=== PATIENT | male | born 1970 | race Caucasian/White ===

== ENCOUNTER 2017-02-25 11:36 | Day surgery (SDC) | payer OTHER ==
[2017-02-21 16:08] VITALS: BMI 40.8
[~2017-02-25 11:36] MED LIST: LACTATED RINGERS 1,000 ML IV SCH; LIDOCAINE 1% 20 ML VIAL (10MG/ML) FOR IV START INTRADERMA PRN
[2017-02-25 12:10] VITALS: RESP 16; TEMP 97.2
[2017-02-25] MEDS ORDERED: KETAMINE 10 MG/ML 20 ML VIAL ONE (12:43)
[2017-02-25] MEDS ORDERED: LIDOCAINE 1% INJ 10MG/ML (20 ML MDV) ONE (12:43)
[2017-02-25] MEDS ORDERED: PROPOFOL 10 MG/ML 20 ML VIAL IV ONE (12:43)
[2017-02-25] MEDS ORDERED: MIDAZOLAM 2 MG/2 ML VIAL ONE (12:43)
[2017-02-25] MEDS ORDERED: GLYCOPYRROLATE 0.2 MG/ML 2 ML VIAL ONE (12:43)
--- NOTE | 2017-02-25 13:22 | P.PCN ---
Date of Procedure: 02/25/17 Procedure(s) Performed: Procedures: 1. Esophagogastroduodenoscopy and biopsy. 2. Total colonoscopy. Preoperative diagnosis: Chronic reflux symptoms and family history of colon cancer. Postoperative diagnosis: 1. Small sliding hiatal hernia with no obvious esophagitis or complicated reflux disease. 2. Mild gastritis. 3. Sigmoid diverticulosis with no evidence of acute diverticulitis, strictures, polyps or cancer. Preparation: HalfLytely prep. Sedation: Was provided by anesthesia. Brief clinical history: The patient is a 46-year-old male who is referred for this evaluation because of chronic reflux symptoms and retrosternal burning has family history of colon cancer in his dad. He denies dysphagia or other alarm symptoms. At this time, he has no abdominal pains, bleeding or anemia. This evaluation is requested to evaluate for neoplasia or complicated reflux disease or other pathology. Procedure: With the patient on his left lateral decubitus position and after informed consent and adequate sedation, I passed the Olympus-GIF 160 video upper endoscope through the cricopharyngeus down the esophagus. GE junction was around 40 cm from the incisors and there was a small sliding hiatal hernia. The esophagus did not show any obvious erosions, ulcers, strictures or Duncan 's esophagus. The endoscope was then passed into the stomach which was insufflated with air and inspected in detail including the retroflex view in the cardia. There was some minimal mottling and erythema in the antrum but no ulcers or erosions. Pyloric channel, duodenal bulb, post bulbar area and descending duodenum showed minimal erythema. I obtained biopsies from the duodenum, antrum and esophagus then the endoscope was withdrawn and I proceeded with the colonoscopy. Perianal area did not show any fissures or fistulas. There were no masses felt on digital rectal examination. The Olympus CFQ 160L video colonoscope was then inserted in the rectum in the usual fashion and advanced to the cecum. There was several diverticular orifices scattered in the sigmoid with no evidence of acute diverticulitis or strictures. The mucosa appeared healthy. No polyps or tumors were seen or any significant pathology. I retroflexed the endoscope in the rectum before the endoscope was withdrawn. The patient tolerated the procedure well. Plan: The patient was reassured. Discussed dietary measures. He will follow up with you as planned and further plans can be made based on his course and biopsy results. With his family history, I am recommending repeat colonoscopy in 5 years.
[2017-02-25 13:46] VITALS: BP 140/89; PULSE 65
== END 2017-02-25 14:13 | disposition home or self-care (01) ==
LOC: ORWHC2ENDO 11:36
DX: Z12.11 Encounter for screening for malignant neoplasm of colon (principal); Z80.0 Family history of malignant neoplasm of digestive organs; K29.50 Unspecified chronic gastritis without bleeding; K21.0 Gastro-esophageal reflux disease with esophagitis; K44.9 Diaphragmatic hernia without obstruction or gangrene; K57.30 Diverticulosis of large intestine without perforation or abscess without bleeding; G47.33 Obstructive sleep apnea (adult) (pediatric); F41.9 Anxiety disorder, unspecified; Z79.891 Long term (current) use of opiate analgesic; Z79.899 Other long term (current) drug therapy; F17.200 Nicotine dependence, unspecified, uncomplicated
CPT/HCPCS: 88305; 88342; 43239; J2250; J2001; J2704; G0105

== ENCOUNTER → 2017-03-07 | Outpatient (CLI) | payer OTHER ==
--- NOTE | 2017-03-07 23:16 | MR ---
EXAMINATION TYPE: MR lumbar spine wo con DATE OF EXAM: 03/07/2017 9:00 PM COMPARISON: NONE HISTORY: low back pain x25 years TECHNIQUE: Multiplanar, multisequence images of the lumbar spine were acquired. FINDINGS: Lumbar vertebra have normal alignment. There is degenerative disc space narrowing throughout the lumb ar spine and more severe at L4-5. There are posterior disc herniations at T12-L1 L1-2 and L4-5. There is developmentally large spinal canal and no evidence of any significant spinal stenosis. There is s mall posterior disc bulge at L5-S1. There is mild hypertrophic facet arthropathy in the mid and lower lumbar spine. There is no paraspinal mass. There is no compression fracture. The neural foramina are fairly well maintained. I see no focal bone destruction. The upper sacroiliac joints appear normal. IMPRESSION: There are mild multilevel spondylotic changes. There are several posterior disc herniations which are relatively small and there is no significant impingement on the spinal canal. No spinal stenosis.
== END | disposition home or self-care (01) ==
LOC: RADMRIMAIN 20:03
PROVIDERS: ATTEND Physician Assistant
DX: M51.06 Intervertebral disc disorders with myelopathy, lumbar region (principal); M47.16 Other spondylosis with myelopathy, lumbar region
CPT/HCPCS: 72148

== ENCOUNTER → 2019-06-10 | Outpatient (CLI) | payer OTHER ==
--- NOTE | 2019-06-10 09:44 | US ---
EXAMINATION TYPE: US abdomen limited DATE OF EXAM: 06/10/2019 COMPARISON: NONE CLINICAL HISTORY: K21.9 GERD, R10.11 RUQ Abd pain. Intermittent epigastric pain x multiple years, wea kness EXAM MEASUREMENTS: Liver Length: 15.9 cm Gallbladder Wall: 0.2 cm CBD: 0.4 cm Right Kidney: 11.8 x 5.1 x 6.4 cm Pancreas: visualized portions wnl, limited by overlying midline bowel gas Liver: Unremarkable Gallbladder: low level echoes seen within fundus appearing as biliary sludge. Evidence for sonographic Mccray's sign: no CBD: visualized portions wnl, limited by overlying bowel gas Right Kidney: visualized portions wnl, inferior pole limited by overlying bowel gas IMPRESSION: Biliary sludge without current sonographic evidence of acute cholecystitis.
== END ==
LOC: RADUSMAIN 08:23
PROVIDERS: ATTEND Family Medicine
DX: K21.9 Gastro-esophageal reflux disease without esophagitis (principal); R10.11 Right upper quadrant pain
CPT/HCPCS: 76705

== ENCOUNTER 2020-04-07 23:20 | Emergency (ER) | payer OTHER ==
[2020-04-07 23:38] VITALS: RESP 18; TEMP 98
[2020-04-08] MEDS ORDERED: HYDROmorphone 0.5 MG/0.5 ML SYRINGE IVP STA (00:24)
[2020-04-08 00:46] LABS: Basophils # (A) 0.1 k/uL (0-0.2); Basophils % (A) 1 %; Eosinophils # (A) 0.3 k/uL (0-0.7); Eosinophils % (A) 3 %; HCT 40.6 % (39.0-53.0); HGB 13.4 gm/dL (13.0-17.5); Lymphocytes # (A) 1.9 k/uL (1.0-4.8); Lymphocytes % (A) 19 %; MCH 31.3 pg (25.0-35.0); MCV 94.9 fL (80.0-100.0); Mean Platelet Volume 6.9; Monocytes # (A) 0.8 k/uL (0-1.0); Monocytes % (A) 8 %; Neutrophils # (A) 6.8 k/uL (1.3-7.7); Neutrophils % (A) 69 %; Platelet Count 283 k/uL (150-450); RBC 4.28 m/uL (4.30-5.90); RDW 13.2 % (11.5-15.5); WBC 9.9 k/uL (3.8-10.6)
[2020-04-08 00:59] LABS: Appearance,Urine Clear (Clear); Bilirubin,Urine Negative (Negative); Blood,Urine Negative (Negative); Color,Urine Yellow; Glucose,Urine (UA) Negative (Negative); Ketones,Urine Negative (Negative); Leukocyte Esterase,Urine Negative (Negative); Nitrite,Urine Negative (Negative); Protein,Urine Negative (Negative); Specific Gravity,Urine 1.028 (1.001-1.035)
[2020-04-08] MEDS ORDERED: HYDROmorphone 1 MG/ML 1 ML SYRINGE IVP STA (01:19)
[2020-04-08 01:24] LABS: ALT 16 U/L (4-49); AST 22 U/L (17-59); African American GFR (CKD) >90 (>60 ml/min/1.73 sqM); Albumin 3.8 g/dL (3.5-5.0); Alkaline Phosphatase 69 U/L (38-126); Anion Gap 5 mmol/L; Blood Urea Nitrogen 21 mg/dL (9-20); Calcium 8.8 mg/dL (8.4-10.2); Carbon Dioxide 25 mmol/L (22-30); Chloride 104 mmol/L (98-107); Glucose 118 mg/dL (74-99); Non-African American GFR(CKD) 89 (>60 ml/min/1.73 sqM); Potassium 4.1 mmol/L (3.5-5.1); Sodium 134 mmol/L (137-145); Total Bilirubin 0.2 mg/dL (0.2-1.3); Total Protein 6.4 g/dL (6.3-8.2)
[2020-04-08 01:29] VITALS: PULSE 74
[2020-04-08 01:30] VITALS: BP 143/89
[2020-04-08] MEDS ORDERED: SODIUM CHLORIDE 0.9% 1,000 ML IV ONE (02:08)
--- NOTE | 2020-04-08 02:11 | CT ---
EXAMINATION TYPE: CT abdomen pelvis w con DATE OF EXAM: 04/08/2020 COMPARISON: None HISTORY: pain flank pain CT DLP: 2448.9 mGycm Automated exposure control for dose reduction was used. CONTRAST: Performed with IV Contrast, patient injected with 100 mL of Isovue 300. There is mild subsegmental atelectasis at the posterior lung bases. Heart size is normal. There is no pericardial effusion. There is no pleural effusion. There is small hiatal hernia. The stomach has normal size. Liver spleen pancreas gallbladder appear n ormal. Bile ducts are not dilated. There is no adrenal mass. Kidneys show satisfactory contrast opacification. There is no hydronephrosi s. There is normal contrast excretion on the delayed images. Ureters are not dilated. There is no ret roperitoneal adenopathy. Bladder distends smoothly. There is no inguinal hernia. There is no free flu id in the pelvis. There are a few sigmoid diverticula. There is no sign of diverticulitis. Appendix i s posterior and lateral and appears normal. There is no mesenteric edema. There is no ascites or free air. There is no bowel obstruction. Lumbar vertebra have normal alignment. There is mild narrowing of disc spaces with spurring of the en dplates. The bony pelvis appears intact. There is broad-based umbilical hernia that contains fat. IMPRESSION: There are sigmoid diverticula without evidence of diverticulitis. Normal appendix. No renal stone or obstruction. I do not see a cause for flank pain.
[2020-04-08] MEDS ORDERED: LIDOCAINE 5% PATCH TOPICAL STA (02:41)
--- NOTE | 2020-04-08 02:43 | ED ---
General Adult HPI - General Chief complaint: Abdominal Pain Stated complaint: Rt flank pain Time Seen by Provider: 04/07/20 23:40 Source: patient, RN notes reviewed, old records reviewed Mode of arrival: ambulatory Limitations: no limitations - History of Present Illness Initial comments: 49-year-old male patient presents to the chief complaint of right flank pain. Patient reports that it has been ongoing for 2 days. Patient also reports that he has some left flank pain 3 days ago chest since resolved. Patient reports that is worse with range of motion. 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 Denies any chest pain or shortness of breath. He denies any other complaints. Systemic: Pt denies fatigue, fever/chills, rash. Pt denies weakness, night sweats, weight loss. Neuro: Pt denies headache, visual disturbances, syncope or pre-syncope. HEENT: Pt denies ocular discharge or irritation, otalgia, rhinorrhea, pharyngitis or notable lymphadenopathy. Cardiopulmonary: Pt denies chest pain, SOB, heart palpitations, dyspnea on exertion. Abdominal/GI: Pt denies abdominal pain, n/v/d. : Pt denies dysuria, burning w/ urination, frequency/urgency. Denies new onset urinary or bowel incontinence. MSK: Pt denies loss of strength or function in extremities. Neuro: Pt denies new onset weakness, paresthesias. - Related Data Home Medications Medication Instructions Recorded Confirmed ALPRAZolam [Xanax] 0.5 mg PO BID PRN 04/24/14 02/25/17 Esomeprazole Magnesium [NexIUM] 40 mg PO DAILY 04/24/14 02/25/17 Hydrocodone/Acetaminophen [[place] 1 each PO Q6HR PRN 04/24/14 02/25/17 7.5-325] Cyclobenzaprine [Flexeril] 10 mg PO TID 02/21/17 02/25/17 Allergies Allergy/AdvReac Type Severity Reaction Status Date / Time morphine Allergy Rash/Hives Verified 04/07/20 23:38 Review of Systems ROS Statement: Those systems with pertinent positive or pertinent negative responses have been documented in the HPI. ROS Other: All systems not noted in ROS Statement are negative. Past Medical History Past Medical History: GERD/Reflux History of Any Multi-Drug Resistant Organisms: MRSA Date of last positivie culture/infection: 2006 MDRO Source:: LEG Past Surgical History: Orthopedic Surgery Additional Past Surgical History / Comment(s): Previous colonoscopy, R & L knee surgery. bi;ateral wrist carpal tunnel Past Anesthesia/Blood Transfusion Reactions: No Reported Reaction Past Psychological History: Depression Smoking Status: Current every day smoker Past Alcohol Use History: Rare Past Drug Use History: None Reported - Past Family History Mother Family Medical History: No Reported History Father Family Medical History: Cancer Additional Family Medical History / Comment(s): Colon General Exam - General Exam Comments Initial Comments: Constitutional: NAD, AOX3, Pt has pleasant affect. HEENT: NC/AT, trachea midline, neck supple, no lymphadenopathy. Posterior pharynx non erythematous, without exudates. External ears appear normal, without discharge. Mucous membranes moist. Eyes PERRLA, EOM intact. There is no scleral icterus. No pallor noted. Cardiopulmonary: RRR, no murmurs, rubs or gallops, no JVD noted. Lungs CTAB in anterior and posterior cuevas. No peripheral edema. Abdominal exam: Abdomen soft and non-distended. Abdomen non-tender to palpation in all 4 quadrants. Bowel sounds active in LLQ. No hepatosplenomegaly. No ecchymosis. Right flank mildly tender at posterior axillary line and slightly medial. No skin changes. Neuro: CN II-XII grossly intact. No nuchal rigidity. No raccon eyes, no appiah sign, no hemotympanum. No cervical spinal tenderness. MSK: No posterior calf tenderness bilaterally, homans sign negative bilaterally. Posterior tibialis and radial pulse +2 bilaterally. Sensation intact in upper and lower extremities. Full active ROM in upper and lower extremities, 5/5 stregnth. Limitations: no limitations Course Vital Signs 04/07/20 04/08/20 04/08/20 23:35 00:47 01:29 Temperature 98.0 F Pulse Rate 68 75 74 Respiratory 18 18 18 Rate Blood Pressure 147/98 142/100 143/89 O2 Sat by Pulse 98 98 96 Oximetry Medical Decision Making - Medical Decision Making 49-year-old male patient presents to the chief complaint of right flank pain. Patient reports that it has been ongoing for 2 days. Patient also reports that he has some left flank pain 3 days ago chest since resolved. Patient reports that is worse with range of motion. 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 Denies any chest pain or shortness of breath. He denies any other complaints. Patient both on the stable, afebrile. Physical exam displayed: Right flank mildly tender at posterior axillary line and slightly medial. No skin changes. Laboratory investigations are nonimpressive. CT abdomen and pelvis display sigmoid diverticula without any evidence of diverticulitis. Normal appendix. No renal stone or obstruction. No cause for flank pain. I believe the patient's discomfort is likely musculoskeletal in nature stemming from heavy exertion in construction as well as hanging drywall today. Pt denies any red flag symptoms. Will be discharged will follow up with PCP and will return to ED if condition worsens. Case discussed with Dr. Bradford. - Lab Data Result diagrams: 04/08/20 00:28 04/08/20 00:28 Lab Results 04/08/20 04/08/20 04/08/20 Range/Units 00:28 00:28 00:28 WBC 9.9 (3.8-10.6) k/uL RBC 4.28 L (4.30-5.90) m/uL Hgb 13.4 (13.0-17.5) gm/dL Hct 40.6 (39.0-53.0) % MCV 94.9 (80.0-100.0) fL MCH 31.3 (25.0-35.0) pg MCHC 33.0 (31.0-37.0) g/dL RDW 13.2 (11.5-15.5) % Plt Count 283 (150-450) k/uL Neutrophils % 69 % Lymphocytes % 19 % Monocytes % 8 % Eosinophils % 3 % Basophils % 1 % Neutrophils # 6.8 (1.3-7.7) k/uL Lymphocytes # 1.9 (1.0-4.8) k/uL Monocytes # 0.8 (0-1.0) k/uL Eosinophils # 0.3 (0-0.7) k/uL Basophils # 0.1 (0-0.2) k/uL Sodium 134 L (137-145) mmol/L Potassium 4.1 (3.5-5.1) mmol/L Chloride 104 (98-107) mmol/L Carbon Dioxide 25 (22-30) mmol/L Anion Gap 5 mmol/L BUN 21 H (9-20) mg/dL Creatinine 1.00 (0.66-1.25) mg/dL Est GFR (CKD-EPI)AfAm >90 (>60 ml/min/1.73 sqM) Est GFR (CKD-EPI)NonAf 89 (>60 ml/min/1.73 sqM) Glucose 118 H (74-99) mg/dL Plasma Lactic Acid Rom (0.7-2.0) mmol/L Calcium 8.8 (8.4-10.2) mg/dL Total Bilirubin 0.2 (0.2-1.3) mg/dL AST 22 (17-59) U/L ALT 16 (4-49) U/L Alkaline Phosphatase 69 (38-126) U/L Troponin I (0.000-0.034) ng/mL Total Protein 6.4 (6.3-8.2) g/dL Albumin 3.8 (3.5-5.0) g/dL Lipase 46 (23-300) U/L Urine Color Yellow Urine Appearance Clear (Clear) Urine pH 6.0 (5.0-8.0) Ur Specific Andrews 1.028 (1.001-1.035) Urine Protein Negative (Negative) Urine Glucose (UA) Negative (Negative) Urine Ketones Negative (Negative) Urine Blood Negative (Negative) Urine Nitrite Negative (Negative) Urine Bilirubin Negative (Negative) Urine Urobilinogen 2.0 (<2.0) mg/dL Ur Leukocyte Esterase Negative (Negative) 04/08/20 04/08/20 Range/Units 00:28 00:28 WBC (3.8-10.6) k/uL RBC (4.30-5.90) m/uL Hgb (13.0-17.5) gm/dL Hct (39.0-53.0) % MCV (80.0-100.0) fL MCH (25.0-35.0) pg MCHC (31.0-37.0) g/dL RDW (11.5-15.5) % Plt Count (150-450) k/uL Neutrophils % % Lymphocytes % % Monocytes % % Eosinophils % % Basophils % % Neutrophils # (1.3-7.7) k/uL Lymphocytes # (1.0-4.8) k/uL Monocytes # (0-1.0) k/uL Eosinophils # (0-0.7) k/uL Basophils # (0-0.2) k/uL Sodium (137-145) mmol/L Potassium (3.5-5.1) mmol/L Chloride (98-107) mmol/L Carbon Dioxide (22-30) mmol/L Anion Gap mmol/L BUN (9-20) mg/dL Creatinine (0.66-1.25) mg/dL Est GFR (CKD-EPI)AfAm (>60 ml/min/1.73 sqM) Est GFR (CKD-EPI)NonAf (>60 ml/min/1.73 sqM) Glucose (74-99) mg/dL Plasma Lactic Acid Rom 1.0 (0.7-2.0) mmol/L Calcium (8.4-10.2) mg/dL Total Bilirubin (0.2-1.3) mg/dL AST (17-59) U/L ALT (4-49) U/L Alkaline Phosphatase (38-126) U/L Troponin I <0.012 (0.000-0.034) ng/mL Total Protein (6.3-8.2) g/dL Albumin (3.5-5.0) g/dL Lipase (23-300) U/L Urine Color Urine Appearance (Clear) Urine pH (5.0-8.0) Ur Specific Andrews (1.001-1.035) Urine Protein (Negative) Urine Glucose (UA) (Negative) Urine Ketones (Negative) Urine Blood (Negative) Urine Nitrite (Negative) Urine Bilirubin (Negative) Urine Urobilinogen (<2.0) mg/dL Ur Leukocyte Esterase (Negative) - EKG Data -: EKG Interpreted by Me (and Dr. Bradford ) EKG Comments: Ventricular rate 62, Prinivil 164, QRS 96, QT/QTc 412 since 14. Normal sensation, normal EKG, no concern for acute ischemia. Disposition Clinical Impression: Flank pain Disposition: HOME SELF-CARE Condition: Stable Instructions (If sedation given, give patient instructions): Musculoskeletal Pain (ED), Flank Pain (ED) Additional Instructions: Follow-up primary care provider tomorrow. Use Tylenol and Motrin for pain. Remove Lidoderm patch after 12 hours. Return to ER if condition worsens. Is patient prescribed a controlled substance at d/c from ED?: No Referrals: Rodriguez Dong DO [Primary Care Provider] - 1-2 days
[2020-04-08] MEDS ORDERED: KETOROLAC 30 MG/ML 1 ML VIAL IVP STA (02:44)
== END 2020-04-08 03:02 | disposition home or self-care (01) ==
LOC: EC 23:20
DX: R10.9 Unspecified abdominal pain (principal); K57.30 Diverticulosis of large intestine without perforation or abscess without bleeding; K21.9 Gastro-esophageal reflux disease without esophagitis; F32.9 Major depressive disorder, single episode, unspecified; F17.200 Nicotine dependence, unspecified, uncomplicated; Z79.899 Other long term (current) drug therapy; Z88.5 Allergy status to narcotic agent; Z86.14 Personal history of Methicillin resistant Staphylococcus aureus infection
CPT/HCPCS: 96374; 96375; 96376; 99285; 36415; 93005; 80053; 83605; 83690; 84484; 85025; 81003; 74177; J1885; J1170 ×2; Q9967

== ENCOUNTER 2022-02-15 06:47 | Day surgery (SDC) | payer OTHER ==
[2022-02-13 09:22] VITALS: BMI 40.6
[~2022-02-15 06:47] MED LIST changes: -LIDOCAINE 1% 20 ML VIAL (10MG/ML) FOR IV START INTRADERMA PRN
[2022-02-15 07:11] VITALS: TEMP 97.6
[2022-02-15] MEDS ORDERED: PROPOFOL 10 MG/ML 20 ML VIAL IV ONE (07:40)
[2022-02-15] MEDS ORDERED: LIDOCAINE 1% INJ 10MG/ML (20 ML MDV) ONE ×2 (07:40)
[2022-02-15] MEDS ORDERED: fentaNYL (PF) 50 MCG/ML 2 ML AMP ONE (07:40)
[2022-02-15] MEDS ORDERED: MIDAZOLAM 2 MG/2 ML VIAL ONE (07:40)
--- NOTE | 2022-02-15 08:03 | P.PCN ---
Date of Procedure: 02/15/22 Procedure(s) Performed: Brief history: Patient is a pleasant 51-year-old white male scheduled for an elective upper endoscopy as well as colonoscopy as a part of evaluation of GERD and screening for colon cancer. He has family history of colon cancer diagnosed in his father at age 54. Procedure performed: Esophagogastroduodenoscopy with biopsy Colonoscopy and biopsy and snare polypectomy. Preoperative diagnosis: GERD Screening for colon cancer and family history of colon cancer Anesthesia: MAC Procedure: After informed consent was obtained from the patient was brought into the endoscopy unit and IV sedation was administered by anesthesia under continuous monitoring. Initially upper endoscopy was done. The Olympus GF 160 video endoscope was inserted inserted into the mouth and esophagus intubated without any difficulty and was gradually advanced into the stomach and duodenum and carefully examined. The bulb and second part of the duodenum appeared normal. The scope was then withdrawn into the stomach adequately insufflated with air and upon careful examination the antrum had mild gastritis and biopsies were done from this area. The body, cardia and fundus appeared normal. The scope was then withdrawn into the esophagus. The GE junction was located at 40 cm to the incisors. It appeared regular with no erythema erosions or ulcerations. Rest of the esophagus appeared normal. Patient tolerated the procedure well. At this time the patient continued to remain sedation. Initial digital rectal examination was normal. Olympus CF 160 video colonoscope was then inserted into the rectum and gradually advanced to the cecum without any difficulty. Careful examination was performed as the scope was gradually being withdrawn. The prep was excellent. The cecum normal. Ascending colon there was a 3 mm polyp removed by cold biopsy. In the transverse colon there was a 5 mm polyp removed by cold biopsy. In the descending colon there was a 7 mm polyp removed by snare polypectomy., ascending colon, transverse colon, descending colon, sigmoid colon and rectum appeared normal. ~Scattered sigmoid diverticulosis seen. Retroflexion was performed in the rectum and no lesions were noted. Patient tolerated the procedure well. Impression: 1. Upper Endoscopy revealed mild antral gastritis but no evidence of esophagitis or Duncan's esophagus 2. Colonoscopy revealed a 3 mm and 5 mm ascending and transverse colon polyp status post cold biopsy and a 7 mm descending colon polyp status post snare polypectomy. Scattered sigmoid diverticulosis. Recommendations: Findings of this examination were discussed with the patient as well as his family. He was advised to follow with the biopsy results. If the biopsies revealed adenoma he can have a repeat colonoscopy in 3 years.
[2022-02-15 08:10] VITALS: RESP 16
[2022-02-15 08:19] VITALS: BP 127/88; PULSE 68
== END 2022-02-15 08:39 | disposition home or self-care (01) ==
LOC: ORWHC2ENDO 06:47
PROVIDERS: ATTEND Internal Medicine Gastroenterology
DX: Z12.11 Encounter for screening for malignant neoplasm of colon (principal); K29.50 Unspecified chronic gastritis without bleeding; K21.9 Gastro-esophageal reflux disease without esophagitis; D12.2 Benign neoplasm of ascending colon; D12.3 Benign neoplasm of transverse colon; D12.4 Benign neoplasm of descending colon; K57.30 Diverticulosis of large intestine without perforation or abscess without bleeding; Z80.0 Family history of malignant neoplasm of digestive organs; F17.200 Nicotine dependence, unspecified, uncomplicated; G47.33 Obstructive sleep apnea (adult) (pediatric); Z99.81 Dependence on supplemental oxygen; N40.0 Benign prostatic hyperplasia without lower urinary tract symptoms; Z79.899 Other long term (current) drug therapy
CPT/HCPCS: 88305; 45380; 45385; 43239; J2250; J2001; J3010; J2704

== ENCOUNTER → 2024-06-18 | Outpatient (CLI) | payer MEDICAID ==
[~2024-06-18] MED LIST changes: -LACTATED RINGERS 1,000 ML IV SCH; +REGADENOSON 0.4 MG/5 ML SYRINGE IV ONE
--- NOTE | 2024-07-06 11:25 | CA ---
Lexiscan Nuclear Stress Test Report Name: Jamshid Seals Exam Date: 06/18/2024 09:21 Exam Location: [facility] Ht (in): 73 Wt (lb): 290 BSA: 2.52 Ordering Phys: Rodriguez Dong DO Referring Phys: NAHID Technologist: Jeancarlos Archuleta Age: 53 Gender: M : 1970 Procedure CPT: Indications: CP ICD-10 Codes: Patient History: Medications: HYDROCODONE,,,, CELECOXIB,,,, MODAFINIL,,,, PANTOPRAZOLE,,,, TAMSULOSIN,,,, VIT D2,,, Meds past 24 hrs: Pretest Chest Pain: STRESS TEST Lexiscan Protocol Exercise Duration (min:sec): 01:[address] Depressions (mm): Angina Score: Barahona Score: Resting HR (bpm): 44 Peak HR (bpm): 89 Resting BP (mmHg): 119 / 55 Peak BP (mmHg): 130 / 82 MPHR: 168 Target HR: 143 % MPHR: 53 METS: 1.0 Total Dose: Peak Dose: Atropine: Double Product: 56984 BP Response: Stress Termination: INFUSION COMPLETE Stress Symptoms: NO SYMPTOMS Stress Summary: ECG ANALYSIS Resting ECG: Normal sinus rhythm normal axis normal intervals Stress ECG: Patient was given Lexiscan as per protocol did not have chest pain or diagnostic ST segment depression CONCLUSIONS Negative stress test by EKG criteria Cardiolite portion of the stress test will be reported separately Dr. Jeremy Green MD (Electronically Signed) Final Date: 06 July 2024 11:24
--- NOTE | 2024-07-14 11:43 | NM ---
EXAMINATION TYPE: NM myocardial SPECT DATE OF EXAM: 06/18/2024 COMPARISON: NONE CLINICAL INDICATION: Unknown, old with history of ; 9.6 mCi and 26.8 mCi of technetium 99m sestamibi was administered. Multiple SPECT images were obtaine d. FINDINGS: Calculated ejection fraction is 61% Areas of reversibility noted anterior wall and the apical region. Correlate for stress-induced ischem ia. IMPRESSION: Areas of reversibility noted anterior wall and the apical region. Correlate for stress-induced ischem ia.
== END | disposition home or self-care (01) ==
LOC: RADNMMAIN 07:55
PROVIDERS: ATTEND Family Medicine
DX: R07.89 Other chest pain (principal); Z88.5 Allergy status to narcotic agent
CPT/HCPCS: 93017; 78452; A9500; J2785

== ENCOUNTER 2024-08-23 06:59 | Day surgery (SDC) | payer MEDICAID ==
[~2024-08-23 06:59] MED LIST changes: +ALPRAZolam 0.25 MG TAB PO PRN; +ALPRAZolam 0.5 MG TAB PO PRN; +NITROGLYCERIN SL TABS 0.4 MG TAB SUBLINGUAL PRN; -REGADENOSON 0.4 MG/5 ML SYRINGE IV ONE
[2024-08-23] MEDS ORDERED: ASPIRIN 325 MG TAB PO ONE (07:00)
[2024-08-23] MEDS ORDERED: ATORVASTATIN 80 MG TAB PO ONE (07:00)
[2024-08-23 07:21] VITALS: RESP 16; TEMP 97.1
[2024-08-23] MEDS: SODIUM CHLORIDE 0.9% 1,000 ML in EMPTY BAG 1 BAG IV SCH (07:22)
[2024-08-23 07:32] LABS: Basophils # (A) 0.1 k/uL (0-0.2); Basophils % (A) 1 %; Eosinophils # (A) 0.2 k/uL (0-0.7); Eosinophils % (A) 2 %; HCT 49.3 % (39.0-53.0); HGB 15.4 gm/dL (13.0-17.5); Lymphocytes % (A) 25 %; MCH 29.4 pg (25.0-35.0); MCHC 31.2 g/dL (31.0-37.0); MCV 94.1 fL (80.0-100.0); Monocytes # (A) 0.6 k/uL (0-1.0); Monocytes % (A) 8 %; Neutrophils % (A) 63 %; Platelet Count 308 k/uL (150-450); RBC 5.23 m/uL (4.30-5.90); RDW 13.2 % (11.5-15.5); WBC 7.9 k/uL (3.8-10.6)
[2024-08-23 07:42] LABS: African American GFR (CKD) >90 (>60 ml/min/1.73 sqM); Anion Gap 5 mmol/L; Blood Urea Nitrogen 22 mg/dL (9-20); Calcium 9.2 mg/dL (8.4-10.2); Carbon Dioxide 28 mmol/L (22-30); Chloride 106 mmol/L (98-107); Glucose 112 mg/dL (74-99); Non-African American GFR(CKD) 84 (>60 ml/min/1.73 sqM); Potassium 4.9 mmol/L (3.5-5.1); Sodium 139 mmol/L (137-145)
[2024-08-23] MEDS: HEPARIN SODIUM,PORCINE (1 ML) 2,500 UNIT in SODIUM CHLORIDE 0.9% 250 ML IRRIGATION PRN (09:09)
[2024-08-23] MEDS: HEPARIN SODIUM,PORCINE 10,000 UNIT in SODIUM CHLORIDE 0.9% 1,000 ML IRRIGATION PRN (09:09)
[2024-08-23] MEDS: MIDAZOLAM 2 MG/2 ML VIAL IVP ONE (09:34)
[2024-08-23] MEDS: fentaNYL (PF) 50 MCG/ML 2 ML AMP IVP ONE (09:35)
[2024-08-23] MEDS: LIDOCAINE 1% INJ 10MG/ML (20 ML MDV) SQ ONE (09:36)
[2024-08-23] MEDS: IV FLUID CONTINUATION 1,000 ML IV ONE (09:36)
[2024-08-23] MEDS: VERAPAMIL SYRINGE (5 MG/10 ML) INTRAARTER ONE (09:39)
[2024-08-23] MEDS: HEPARIN SODIUM 1,000 UN/ML (10ML VL) IV ONE (09:44)
[2024-08-23] MEDS: IOPAMIDOL-370 100ML BTL INJ ONE (09:53)
[2024-08-23 12:46] VITALS: BP 133/77
[2024-08-23 13:30] VITALS: PULSE 49
--- NOTE | 2024-08-23 20:30 | CC ---
CARDIAC CATHETERIZATION REPORT INDICATION: Chest pain with abnormal stress test. PROCEDURE NOTE: After obtaining informed consent, left heart catheterization and coronary angiogram were performed via the right radial artery using standard Norberto catheters. The patient tolerated the procedure well without any obvious immediate complications, received moderate conscious sedation. Total sedation time was 18 minutes. Right radial artery access was obtained using Seldinger technique, a 6-Occitan sheath was placed. Catheters and wires were floated into the ascending aorta under fluoroscopic guidance. The patient was given verapamil and heparin per protocol. FINDINGS: 1. HEMODYNAMICS: Left ventricular end-diastolic pressure is 12 mmHg. There is no significant gradient across the aortic valve. 2. LEFT VENTRICULOGRAM: Left ventriculogram is not performed. 3. ANGIOGRAPHIC DATA: a.Right coronary artery: Right coronary artery is a large dominant vessel and is free of significant stenosis. b.Left main coronary artery: A normal-sized vessel and divides into left anterior descending coronary artery and circumflex coronary artery. c.LAD and its branches, circumflex coronary artery and its branches are free of significant stenosis. CONCLUSIONS: 1. Normal coronary arteries. 2. The stress test is probably a false-positive stress test. 3. The patient's management is going to be in the form of risk factor modification. MMODL / IJN: [id number] /
== END 2024-08-23 13:51 | disposition home or self-care (01) ==
LOC: CATHCVL 06:59
PROVIDERS: ATTEND Internal Medicine Cardiovascular Disease
DX: R94.39 Abnormal result of other cardiovascular function study (principal); R07.2 Precordial pain; I25.10 Atherosclerotic heart disease of native coronary artery without angina pectoris; Z87.891 Personal history of nicotine dependence
CPT/HCPCS: 93458; 80048; 85025; 99152; J2250; J1644 ×3; J2003; J3010; Q9967